=== PATIENT | female | born 1985 | race Caucasian/White ===

== ENCOUNTER 2016-08-09 19:02 | Emergency (ER) | payer MEDICAID ==
--- NOTE | 2016-08-09 20:25 | Emergency Department Record ---
History of Present Illness - General Chief complaint: Abscess Stated complaint: BOIL UNDER LT ARM Time Seen by Provider: 08/09/16 20:16 Source: Patient Mode of Arrival: Ambulatory Limitations: No limitations - History of Present Illness Initial comments: 31 yo presents with left axilla pain, redness and swelling. She has a history of abscesses in the past. This started one week ago. She saw her doctor 2 days ago and started clindamycin. She is not improved. She is having fevers. She has had fevers and chills. She has had multiple I and D's in the past. PCP is Dr Thomas of [place]. MD complaint: Abscess/boil - Related Data Home Medications Medication Instructions Recorded Confirmed Last Taken Albuterol Sulfate [Ventolin Hfa] 1 puff INH DAILY 08/09/16 08/09/16 08/09/16 Aripiprazole [Aripiprazole] 20 mg PO DAILY 08/09/16 08/09/16 08/09/16 Clindamycin HCl [Cleocin HCl] 300 mg PO TID 08/09/16 08/09/16 08/09/16 Fluticasone/Salmeterol 100/50 1 disk IH Q12H 08/09/16 08/09/16 08/09/16 [Advair 100/50] Loratadine [Loratadine] 10 mg PO DAILY 08/09/16 08/09/16 08/09/16 Mometasone/Formoterol [Dulera 200 1 inh INH DAILY 08/09/16 08/09/16 08/09/16 Mcg/5 Mcg Inhaler] Venlafaxine HCl [Venlafaxine HCl 225 mg PO DAILY 08/09/16 08/09/16 08/09/16 ER] Allergies Allergy/AdvReac Type Severity Reaction Status Date / Time Cephalosporins Allergy Unknown HIVES Unverified 08/09/16 20:11 erythromycin base [From ] Allergy Unknown HIVES Unverified 08/09/16 20:11 Sulfa (Sulfonamide Allergy Unknown VOMITING Unverified 08/09/16 20:11 Antibiotics) sulfisoxazole Allergy VOMITING Verified 08/09/16 20:11 [From Pediazole] Review of Systems Constitutional: Reports: Chills, Fever, Malaise Eyes: Denies: Eye discharge ENT: Denies: Congestion, Throat pain Respiratory: Denies: Cough, Dyspnea, Hemoptysis, Stridor, Wheezes Cardiovascular: Denies: Chest pain, Palpitations, Syncope Endocrine: Denies: Fatigue Gastrointestinal: Denies: Abdominal pain, Diarrhea, Nausea, Vomiting Genitourinary: Denies: Dysuria, Urgency Musculoskeletal: Denies: Arthralgia, Back pain, Joint swelling, Myalgia, Neck pain Skin: Reports: Change in color, Lesions. Denies: Bruising Neurological: Denies: Confusion, Headache Psychiatric: Denies: Anxiety Hematological/Lymphatic: Denies: Blood Clots, Easy bleeding, Easy bruising, Swollen glands Physical Exam - General General Appearance: Alert, Oriented x3, Cooperative, No acute distress, Anxious Limitations: No limitations - Head Head exam: Normal inspection - Eye Eye exam: Normal appearance. negative: Conjunctival injection, Periorbital swelling - ENT ENT exam: Normal exam Ear exam: Normal external inspection Nasal Exam: Normal inspection Mouth exam: Normal external inspection - Neck Neck exam: Normal inspection, Full ROM. negative: Tenderness - Respiratory Respiratory exam: Normal lung sounds bilaterally. negative: Respiratory distress - Cardiovascular Cardiovascular Exam: Tachycardia - Rectal Rectal exam: Deferred - exam: Deferred - Extremities Extremities exam: Full ROM, Tenderness. negative: Normal inspection Image of Full Body: 1 - tenderness erythema, fluctuance in the axilla with surrounding erythema to the elbow consistent with cellulitis, mulitple old axillary scars from prior infections - Back Back exam: Reports: Normal inspection - Neurological Neurological exam: Alert, Normal gait, Oriented X3. negative: Altered - Psychiatric Psychiatric exam: Anxious - Skin Type of lesion: Abscess Course - Reevaluation(s) Reevaluation #1: The patient was seen and examined She has an abscess in the left axilla with cellulitis beyond the line from 24 hours ago I recommended I and D and admission for IV antibiotics or transfer for inpatient treatment for this infection If she does not want inpatient at [facility] I offered assisting with transfer to another hospital of her choice. She declined. She told me she will not stay inpatient under any condition I told her I would absolutely treat her in the ED but she is taking significant risk by leaving the ED. I explained she would have to sign out AMA assuming the risk of worse infection or even sepsis with threat to life or limb She understands my concerns and accept the risks and will sign out AMA with the acceptance of the risk for a bad outcome. She is fully capable of making personal medical decisions and understanding the consequences. All conversations occurred prior to IV analgesia. She has very clear thoughts on her care and what she will consent to at this time. 08/09/16 20:27 08/09/16 20:41 Reevaluation #2: I further evaluated the patient with bedside US. The area is larger than realized on initial examination. The fluctuant area nears 8-10cm. I recommend transfer or to discuss with surgery. The patient prefers [facility]. 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 08/09/16 21:07 Reevaluation #3: I SW Dr Arriola I SW Dr Jensen of the ED as well for transfer and surgery consultation 08/09/16 21:14 The patient is will to be transferred understanding the significance of the infection. She will not go by EMS. She is stable to go by car. She was told to eat or drink. She had been told already to remain NPO. 08/09/16 21:21 Medical Decision Making - Lab Data Result diagrams: 08/09/16 20:38 08/09/16 20:38 Disposition Disposition: Transfer Clinical Impression: Axillary abscess Cellulitis Qualifiers: Site of cellulitis: unspecified site Qualified Code(s): L03.90 - Cellulitis, unspecified Disposition: Acute Care Hospital Transfer Transfer To: [facility] Reason For Transfer: Axillary abscess, cellulitis Accepting Physician: [facility] Time Discussed w/Accepting Physician: 21:17 Condition: (3) Guarded Instructions: Abscess Incision and Drainage (ED), Abscess (ED) Additional Instructions: Go directly to the [facility] ER DO NOT EAT OR DRINK ANYTHING PRIOR TO BEING SEEN THERE Forms: Patient Portal Access Time of Disposition: 21:17
[2016-08-09] MEDS ORDERED: 0.9 % SODIUM CHLORIDE 1,000 ML BAG IV ONE (20:26)
[2016-08-09] MEDS ORDERED: HYDROMORPHONE HCL 1 MG/ML CPJ IVP ONE (20:26)
[2016-08-09] MEDS ORDERED: CLINDAMYCIN 600MG/50ML PREMIX 600 MG/50 ML BAG IVPB ONE (20:26)
[2016-08-09] MEDS ORDERED: LORAZEPAM 2 MG/ML VIAL IV ONE ×2 (20:41→20:45)
[2016-08-09 20:51] LABS: HEMATOCRIT 39.1 % (35.0-47.0); HEMOGLOBIN 12.8 gm/dl (11.6-16.0); MEAN CELL VOLUME 88.7 fl (81-97); MEAN CORPUSCULAR HGB CONC 32.7 g/dl (32-36); MEAN PLATELET VOLUME 10.4 fl (7.4-10.4); PLATELET COUNT 259 K/uL (130-400); RED BLOOD COUNT 4.41 M/uL (3.80-5.40); RED CELL DISTRIBUTION WIDTH 14.7 % (11.5-14.5); WHITE BLOOD COUNT W/O DIFF 13.2 K/uL (4.2-12.2)
[2016-08-09 21:01] LABS: ANION GAP 9.2 (7-16); BLOOD UREA NITROGEN 3 mg/dL (7-17); CARBON DIOXIDE 24.8 mmol/L (22-30); CREATININE 0.6 mg/dL (0.52-1.04); EST GLOMERULAR FILTRATION RATE > 60 ml/min; GLUCOSE,RANDOM 121 mg/dL (70-110)
== END 2016-08-09 21:40 | disposition short-term general hospital (02) ==
LOC: ER 19:02
DX: L02.412 Cutaneous abscess of left axilla (principal)
CPT/HCPCS: 99285 ×2; 96376; 96365; 96375; 80048; 85027; J2060; J1170; J7030

== ENCOUNTER 2016-11-16 09:54 | Emergency (ER) | payer MEDICAID ==
--- NOTE | 2016-11-16 10:21 | Emergency Department Record ---
History of Present Illness - General Chief Complaint: Suicidal thoughts Stated Complaint: SUICIDAL Time Seen by Provider: 11/16/16 10:08 Source: Patient Mode of Arrival: EMS Limitations: No limitations Travel/Exposure to [place] Within 21 Days of Symptoms: No - History of Present Illness Initial Comments: The patient is here due to feeling suicidal today. She states she got in a fight with her mother due to feeling suicidal and then her mother called the police. She was then sent to the ER for evaluation. The patient states she has a hx of drug abuse and is thinking of using a big dose of heroin to kill herself. She is not willing to share anything else with me at this time. She also denies any overdose or ingestion presently. MD Complaint: Suicidal ideation Onset/Timin -: Hour(s) Associated Psychiatric Symptoms: Depression, Suicidal ideation If Self Harm: Admits thoughts of self harm, Has plan Details of Plan: pt states "take a big ass shot of fucking herione and go peacefully" - [place] Coma Scale Eye Response: (4) Open spontaneously Motor Response: (6) Obeys commands Verbal Response: (5) Oriented [place] Total: 15 - Related Data Previous Rx's Medication Instructions Recorded Doxycycline Monohydrate [Mondoxyne 100 mg PO BID #14 capsule 11/16/16 ] Allergies Allergy/AdvReac Type Severity Reaction Status Date / Time Cephalosporins Allergy Unknown HIVES Verified 11/16/16 10:13 erythromycin base [From ] Allergy Unknown HIVES Verified 11/16/16 10:13 Sulfa (Sulfonamide Allergy Unknown VOMITING Verified 11/16/16 10:13 Antibiotics) sulfisoxazole Allergy VOMITING Verified 11/16/16 10:13 [From Pediazole] Review of Systems Constitutional: Denies: Chills, Fever Eyes: Denies: Eye discharge ENT: Denies: Congestion, Other Respiratory: Denies: Cough, Dyspnea Past Medical History - SOCIAL HISTORY Smoking Status: Current every day smoker Alcohol Use: Occasional Drug Use: Heavy Drug Use Detail:: Methamphetamine, Other - RESPIRATORY Hx Respiratory Disorders: Yes Hx Asthma: Yes Hx Bronchitis: Yes - CARDIOVASCULAR Hx Cardio Disorders: No - NEURO Hx Neuro Disorders: No - GI Hx GI Disorders: Yes Hx Hepatitis/Jaundice: Yes - Hx Genitourinary Disorders: No - ENDOCRINE Hx Endocrine Disorders: No - MUSCULOSKELETAL Hx Musculoskeletal Disorders: Yes Comment:: cage and screws - PSYCH Hx Anxiety: Yes Hx Behavior Problems: Yes (boarderline personality) Hx Depression: Yes - HEMATOLOGY/ONCOLOGY Hx Hematology/Oncology Disorders: No Family Medical History Any Significant Family History?: No Family Hx Comment (NOT TO BE USED IN PLACE OF ITEMS BELOW): unable to provide at this time Physical Exam - General General Appearance: Alert, Oriented x3, Cooperative, No acute distress - Head Head exam: Atraumatic, Normocephalic, Normal inspection - Eye Eye exam: Normal appearance, PERRL - Neck Neck exam: Normal inspection, Full ROM. negative: Tenderness - Respiratory Respiratory exam: Normal lung sounds bilaterally. negative: Respiratory distress - Cardiovascular Cardiovascular Exam: Regular rate, Normal rhythm, Normal heart sounds - GI/Abdominal GI/Abdominal exam: Soft, Normal bowel sounds. negative: Tenderness - Extremities Extremities exam: Normal inspection, Full ROM, Normal capillary refill. negative: Tenderness - Neurological Neurological exam: Alert, Normal gait. negative: Abnormal gait, Motor sensory deficit Course Vital Signs 11/16/16 10:06 Temperature 98.0 F Pulse Rate 100 H Respiratory 18 Rate Blood Pressure 141/82 Pulse Ox 98 - Reevaluation(s) Reevaluation #1: The patient is doing very well at this time. She denies any pain or discomfort and is resting comfortably. I did discuss the case with Ms. De Los Santos at [facility] and she does accept the patient in transfer. She would like to look over her paperwork and will call us back. 11/16/16 11:22 Reevaluation #2: The patient is doing well. She is calm and cooperative and denies any problems. She is still coughing which has been present for over 2 weeks so we will start her on Doxycycline. The patient's lab evaluation does demonstrate elevated LFT' s but that is chronic for her due to Hep C she states. She also has had elevated LFT's in the past so it appears it is a chronic issue with her. She appears very stable for discharge to [facility]. 11/16/16 11:46 Reevaluation #3: The patient is doing very well at this time. She was acting out for a prolonged time and was belligerent, shouting profanities and was stating she was going to fight us. We did call the police and now the patient is calm. We did NOT have to physically or chemically restrain the patient. She states she is angry due to not being able to smoke and due to the fact she was lied to by the police. 11/16/16 13:44 Reevaluation #4: I did just speak with Ms. De Los Santos at [facility] and the patient is cleared for transfer. 11/16/16 14:08 Medical Decision Making - Data Complexity MDM Data: Labs Ordered and/or Reviewed, X-Ray Ordered and/or Reviewed - Lab Data Result diagrams: 11/16/16 10:15 11/16/16 10:15 - Radiology Data Radiology results: Report reviewed (CXR: Neg.) Disposition Disposition: Transfer Clinical Impression: Suicidal ideation Disposition: Acute Care Hospital Transfer Transfer To: [facility] Reason For Transfer: Psych. Accepting Physician: Dr. Abbott Time Discussed w/Accepting Physician: 14:06 Condition: (2) Stable Instructions: Suicide Prevention for Adults (ED) Additional Instructions: Please proceed to [facility] for further evaluation. Take the Doxycycline as directed. Prescriptions: Doxycycline Monohydrate [Mondoxyne Nl] 100 mg PO BID #14 capsule Forms: Patient Portal Access Time of Disposition: 14:06 Quality - Quality Measures Quality Measures: N/A - Blood Pressure Screening View Details: Yes Does Patient Have Any of the Following: No Blood Pressure Classification: Pre-Hypertensive BP Reading Systolic Measurement: 141 Diastolic Measurement: 82 Screening for High Blood Pressure: < Pre-Hypertensive BP, F/U Documented > [ G8950] Pre-Hypertensive Follow-up Interventions: Referral to alternative/primary care provider.
[2016-11-16 10:28] LABS: BASO % 0.3 % (0-6); EOS % 3.8 % (0-6); GRAN % 69.1 % (47-80); HEMATOCRIT 38.2 % (35.0-47.0); HEMOGLOBIN 12.9 gm/dl (11.6-16.0); LYMPH % 18.4 % (16-45); MEAN CELL VOLUME 87.4 fl (81-97); MEAN CORPUSCULAR HEMOGLOBIN 29.5 pg (27-33); MEAN CORPUSCULAR HGB CONC 33.8 g/dl (32-36); MEAN PLATELET VOLUME 10.3 fl (7.4-10.4); MONO % 8.4 % (0-9); PLATELET COUNT 238 K/uL (130-400); RED BLOOD COUNT 4.37 M/uL (3.80-5.40); RED CELL DISTRIBUTION WIDTH 15.9 % (11.5-14.5); WHITE BLOOD COUNT W/O DIFF 7.7 K/uL (4.2-12.2)
[2016-11-16] MEDS: IPRATROPIUM/ALBUTEROL (0.5MG/3MG) NEB INH ONE (10:33)
[2016-11-16 10:42] LABS: ALB/GLOB RATIO 1.3 (1.1-1.8); ALBUMIN 3.9 g/dL (4.0-5.0); ALKALINE PHOSPHATASE 63 U/L (35-104); ALT/SGPT 155 U/L (<33); AST/SGOT 96 U/L (10.0-35.0); BLOOD UREA NITROGEN 7.8 mg/dL (12.6-42.6); CREATININE 0.5 mg/dL (0.5-0.9); EST GLOMERULAR FILTRATION RATE > 60 mL/min; GLUCOSE,RANDOM 116 mg/dL (74-109); TOTAL PROTEIN 6.8 g/dL (6.6-8.7)
[2016-11-16 10:45] LABS: SALICYLATE < 0.3 mg/dL (2.8-20)
[2016-11-16 11:08] LABS: URINE APPEARANCE CLEAR; URINE BILIRUBIN NEGATIVE (NEGATIVE); URINE BLOOD NEGATIVE (NEGATIVE); URINE COLOR YELLOW; URINE GLUCOSE (UA) NEGATIVE (NEGATIVE); URINE KETONE TRACE (NEGATIVE); URINE LEUKOCYTE ESTERASE TRACE (NEGATIVE); URINE NITRITE NEGATIVE (NEGATIVE); URINE PROTEIN NEGATIVE (NEGATIVE)
[2016-11-16 11:12] LABS: AMPHETAMINE SCREEN URINE NOT DETECTED; BARBITURATE SCREEN URINE NOT DETECTED; BENZODIAZEPINE SCREEN URINE NOT DETECTED; COCAINE SCREEN URINE NOT DETECTED; METHADONE SCREEN URINE NOT DETECTED; METHAMPHETAMINE SCREEN DETECTED; OPIATE SCREEN URINE NOT DETECTED; OXYCODONE SCREEN URINE NOT DETECTED; PHENCYCLIDINE SCREEN URINE NOT DETECTED; PROPOXYPHENE SCREEN URINE NOT DETECTED; THC SCREEN URINE NOT DETECTED; TRICYCLIC ANTIDEPRESSANT SCRN NOT DETECTED
[2016-11-16] MEDS: LORAZEPAM 0.5 MG TABLET PO ONE (11:12)
[2016-11-16] MEDS: POTASSIUM CHLORIDE 20 MEQ TABLET PO ONE (11:13)
[2016-11-16 11:17] LABS: HCG,QUALITATIVE URINE NEGATIVE (NEGATIVE); URINE BACTERIA 1+; URINE RBC NONE SEEN (NONE SEEN)
[2016-11-16] MEDS: DOXYCYCLINE HYCLATE 100 MG CAPSULE PO ONE (12:07)
[2016-11-16] MEDS: NICOTINE 21 MG/24 HOUR PATCH TD SCH (13:20)
--- NOTE | 2016-11-17 10:32 | RADIOLOGY REPORT ---
EXAM: CHEST, TWO VIEWS HISTORY: PATIENT HAS COUGH TIMES ONE AND A HALF WEEKS. TECHNIQUE: Two views of the chest are provided along with the comparison x-ray dated 07/05/11. FINDINGS: The cardiomediastinal silhouette is within normal limits for size and contour. The susan appear unremarkable. There is no radiographic evidence of a focal infiltrate or pleural effusion. IMPRESSION: NO RADIOGRAPHIC EVIDENCE OF AN ACUTE INTRATHORACIC PROCESS. JOB NUMBER: [id number] MTDD
== END 2016-11-16 14:34 | disposition short-term general hospital (02) ==
LOC: ER 09:54
DX: R45.851 Suicidal ideations (principal); R05 Cough; B19.20 Unspecified viral hepatitis C without hepatic coma; Z79.899 Other long term (current) drug therapy
CPT/HCPCS: 99285 ×2; 85025; 80053; 81001; 81025; 80305; 71020; 94640; G0480 ×3; 80320; 80329

== ENCOUNTER 2018-11-12 17:34 | Emergency (ER) | payer MEDICAID ==
[2018-11-12] MEDS ORDERED: KETOROLAC 30 MG/ML VIAL IM ONE (17:41)
--- NOTE | 2018-11-12 17:45 | Emergency Department Record ---
History of Present Illness - General Chief Complaint: Knee injury Stated Complaint: KNEE INJURY Time Seen by Provider: 11/12/18 17:40 Source: Patient Mode of Arrival: Ambulatory Limitations: No limitations - History of Present Illness Initial Comments: The patient is here due to twisting her R knee 8 hours ago and having continued pain. She was walking and tried to duck down and her R knee buckled. Since she has had medial R knee pain. The patient has been able to walk on it with pain. She states any ROM does significantly increase the pain. She denies any other injuries. MD Complaint: Knee injury Onset/Timin -: Hour(s) Place: Home Severity: Moderate Severity scale (1-10): 7 Improves With: Nothing Worsens With: Movement, Weight bearing Context: Walking Associated Symptoms: Snap/pop sensation - Related Data Home Medications Medication Instructions Recorded Confirmed Last Taken Metformin HCl 1 tab PO BID 11/12/18 11/12/18 Unknown Quetiapine Fumarate [Seroquel] 1 tab PO DAILY 11/12/18 11/12/18 Unknown Previous Rx's Medication Instructions Recorded Naproxen [Naprosyn] 500 mg PO BID #14 tablet. 11/12/18 Allergies Allergy/AdvReac Type Severity Reaction Status Date / Time Cephalosporins Allergy Unknown HIVES Verified 11/16/16 10:13 erythromycin base [From ] Allergy Unknown HIVES Verified 11/16/16 10:13 Sulfa (Sulfonamide Allergy Unknown VOMITING Verified 11/16/16 10:13 Antibiotics) sulfisoxazole Allergy VOMITING Verified 11/16/16 10:13 [From Pediazole] Travel Screening - Travel/Exposure Within Last 30 Days Have you traveled within the last 30 days?: No - Travel/Exposure Within Last Year Have you traveled outside the [place] in the last year?: No - Additonal Travel Details Have you been exposed to anyone with a communicable illness?: No - Travel Symptoms Symptom Screening: None Review of Systems Constitutional: Denies: Chills, Fever Eyes: Denies: Eye discharge ENT: Denies: Congestion Respiratory: Denies: Cough, Dyspnea Past Medical History - SOCIAL HISTORY Smoking Status: Current every day smoker Alcohol Use: None Drug Use: Rare Drug Use Detail:: Marijuana - RESPIRATORY Hx Respiratory Disorders: Yes Hx Asthma: Yes Hx Bronchitis: Yes - CARDIOVASCULAR Hx Cardio Disorders: No - NEURO Hx Neuro Disorders: No - GI Hx GI Disorders: Yes Hx Hepatitis/Jaundice: Yes - Hx Genitourinary Disorders: No - ENDOCRINE Hx Endocrine Disorders: No - MUSCULOSKELETAL Hx Musculoskeletal Disorders: Yes Comment:: cage and screws - PSYCH Hx Anxiety: Yes Hx Behavior Problems: Yes (boarderline personality) Hx Depression: Yes - HEMATOLOGY/ONCOLOGY Hx Hematology/Oncology Disorders: No Family Medical History Any Significant Family History?: No Family Hx Comment (NOT TO BE USED IN PLACE OF ITEMS BELOW): unable to provide at this time Physical Exam - General General Appearance: Alert, Oriented x3, Cooperative, No acute distress - Head Head exam: Atraumatic - Eye Eye exam: Normal appearance - Extremities Extremities exam: Normal inspection (There is no joint swelling, effusions, or bruising appreciated.), Normal capillary refill, Tenderness (There is R medial joint line tenderness over the knee.), Other (The patient has normal DP pulses bilaterally.). negative: Full ROM (The patient has decreased ROM due to pain and possible R medial collateral ligamentous laxity.), Joint swelling - Neurological Neurological exam: Alert. negative: Motor sensory deficit Course - Reevaluation(s) Reevaluation #1: I did discuss with the patient that I feel the xrays are neg but feel she could have a strain of the R medial collateral ligament. She is to wear the immobilizer at all times and use the crutches for walking. She is to see her PCP next week for recheck and for possible Orthopedic referral. 11/12/18 18:07 Medical Decision Making - Data Complexity MDM Data: X-Ray Ordered and/or Reviewed - Radiology Data Radiology results: Report reviewed (R knee: Neg for any acute changes.) Disposition Disposition: Discharge Clinical Impression: Right knee sprain Qualifiers: Encounter type: initial encounter Involved ligament of knee: unspecified ligament Qualified Code(s): S83.91XA - Sprain of unspecified site of right knee, initial encounter Disposition: Home, Self-Care Condition: (2) Stable Instructions: Knee Sprain (ED) Additional Instructions: Please wear the immobilizer and use the crutches for walking for 3-5 days. Use Naprosyn for pain. Ice and elevate the R knee for the next 3 days and do not walk on the R leg. Please see your family doctor early next week for recheck. Prescriptions: Naproxen [Naprosyn] 500 mg PO BID #14 tablet.dr Forms: Patient Portal Access Time of Disposition: 17:55 Quality - Quality Measures Quality Measures: N/A - Blood Pressure Screening View Details: Yes Does Patient Have Any of the Following: No Blood Pressure Classification: Pre-Hypertensive BP Reading Systolic Measurement: 122 Diastolic Measurement: 62 Screening for High Blood Pressure: < Pre-Hypertensive BP, F/U Documented > [G8950] Pre-Hypertensive Follow-up Interventions: Referral to alternative/primary care provider.
--- NOTE | 2018-11-14 20:18 | RADIOLOGY REPORT ---
EXAM: KNEE, RIGHT 3 VIEWS HISTORY: RIGHT KNEE SPRAIN TODAY. TECHNIQUE: Three views right knee. COMPARISON: None. ENCOUNTER: Initial. FINDINGS: The right knee appears intact with no definite fracture or dislocation seen. No definite joint effusion identified. IMPRESSION: THE RIGHT KNEE APPEARS NEGATIVE. JOB NUMBER: [id number] MTDD
== END 2018-11-12 18:28 | disposition home or self-care (01) ==
LOC: ER 17:34
DX: S83.91XA Sprain of unspecified site of right knee, initial encounter (principal); X50.1XXA Overexertion from prolonged static or awkward postures, initial encounter; Y92.009 Unspecified place in unspecified non-institutional (private) residence as the place of occurrence of the external cause; F17.210 Nicotine dependence, cigarettes, uncomplicated
CPT/HCPCS: 99284 ×2; 96372; 73562; J1885

== ENCOUNTER 2018-11-30 12:12 | Emergency (ER) | payer MEDICAID ==
--- NOTE | 2018-11-30 13:28 | Emergency Department Record ---
History of Present Illness - General Chief complaint: Abscess Stated complaint: LUMP ON HEAD Time Seen by Provider: 11/30/18 13:25 Source: Patient Mode of Arrival: Ambulatory Limitations: No limitations - History of Present Illness Initial comments: Pt with abscess to right scalp. Hair shaved at site. Tender. No fever. Pt is DM on Metformin. No prior treatments. Onset/Timin -: Week(s) Location: Head Severity: Moderate Severity scale (1-10): 9 Quality: Other Consistency: Constant Improves with: None Worsens with: None Context: Other - Related Data Previous Rx's Medication Instructions Recorded Clindamycin HCl 300 mg PO QID 7 Days #28 capsule 11/30/18 Allergies Allergy/AdvReac Type Severity Reaction Status Date / Time Cephalosporins Allergy Unknown HIVES Verified 11/30/18 12:21 erythromycin base [From ] Allergy Unknown HIVES Verified 11/30/18 12:21 Sulfa (Sulfonamide Allergy Unknown VOMITING Verified 11/30/18 12:21 Antibiotics) sulfisoxazole Allergy VOMITING Verified 11/30/18 12:21 [From Pediazole] Travel Screening - Travel/Exposure Within Last 30 Days Have you traveled within the last 30 days?: No - Travel/Exposure Within Last Year Have you traveled outside the [place] in the last year?: No - Additonal Travel Details Have you been exposed to anyone with a communicable illness?: No Review of Systems Constitutional: Denies: Chills, Fever Eyes: Denies: Eye discharge, Photophobia ENT: Denies: Congestion Respiratory: Denies: Cough Cardiovascular: Denies: Palpitations Endocrine: Denies: Fatigue Gastrointestinal: Denies: Abdominal pain, Nausea, Vomiting Musculoskeletal: Denies: Arthralgia, Back pain Skin: Reports: As per HPI Psychiatric: Denies: Anxiety Hematological/Lymphatic: Denies: Anemia Past Medical History - SOCIAL HISTORY Smoking Status: Current every day smoker Alcohol Use: Rare Drug Use: Occasional Drug Use Detail:: Marijuana - RESPIRATORY Hx Respiratory Disorders: Yes Hx Asthma: Yes Hx Bronchitis: Yes - CARDIOVASCULAR Hx Cardio Disorders: No - NEURO Hx Neuro Disorders: No - GI Hx GI Disorders: Yes Hx Hepatitis/Jaundice: Yes - Hx Genitourinary Disorders: No - ENDOCRINE Hx Endocrine Disorders: No - MUSCULOSKELETAL Hx Musculoskeletal Disorders: Yes Comment:: cage and screws - PSYCH Hx Psych Problems: Yes Hx Anxiety: Yes Hx Behavior Problems: Yes (boarderline personality) Hx Depression: Yes - HEMATOLOGY/ONCOLOGY Hx Hematology/Oncology Disorders: No Family Medical History Any Significant Family History?: No Family Hx Comment (NOT TO BE USED IN PLACE OF ITEMS BELOW): unable to provide at this time Physical Exam - General General Appearance: Alert, Oriented x3, Cooperative, No acute distress - Head Head exam: Atraumatic Head exam detail: Other (right posterior parietal area with 1.5 cm diameter area of induration without fluctuance or drainage. ) - Eye Eye exam: Normal appearance, PERRL, EOMI - ENT ENT exam: Mucous membranes moist Ear exam: Normal external inspection Nasal Exam: Normal inspection - Neck Neck exam: Normal inspection, Full ROM. negative: Lymphadenopathy, Tenderness - Respiratory Respiratory exam: Normal lung sounds bilaterally. negative: Wheezes - Cardiovascular Cardiovascular Exam: Regular rate, Normal rhythm - GI/Abdominal GI/Abdominal exam: Soft. negative: Tenderness - Extremities Extremities exam: Normal inspection - Back Back exam: Reports: Normal inspection - Neurological Neurological exam: Alert, Normal gait, Oriented X3 - Psychiatric Psychiatric exam: Normal affect, Normal mood - Skin Skin exam: Normal color (see scalp above) Course Vital Signs 11/30/18 12:23 Temperature 98.8 F Pulse Rate 100 H Respiratory 20 Rate Blood Pressure 138/81 Pulse Ox 97 - Reevaluation(s) Reevaluation #1: 11/30/18 13:31 early abscess without need for I&D at this time. Home with AB and compress. Pt understands. Disposition Disposition: Discharge Clinical Impression: Abscess, scalp Disposition: Home, Self-Care Condition: (2) Stable Instructions: Abscess (ED) Additional Instructions: No Incision needed today. Warm compress 4-6 times a day Take antibiotic as instructed. Monitor sugars See your doctor in 48 hours Return to the ED as needed. Prescriptions: Clindamycin HCl 300 mg PO QID 7 Days #28 capsule Forms: Patient Portal Access Time of Disposition: 13:28 Quality - Quality Measures Quality Measures: N/A - Blood Pressure Screening Does Patient Have Any of the Following: No Blood Pressure Classification: Pre-Hypertensive BP Reading Systolic Measurement: 138 Diastolic Measurement: 81 Screening for High Blood Pressure: < Pre-Hypertensive BP, F/U Documented > [G8950] Pre-Hypertensive Follow-up Interventions: Follow-up with rescreen every year.
== END 2018-11-30 13:39 | disposition home or self-care (01) ==
LOC: ER 12:12
DX: L02.811 Cutaneous abscess of head [any part, except face] (principal); E11.9 Type 2 diabetes mellitus without complications; Z79.84 Long term (current) use of oral hypoglycemic drugs; F17.210 Nicotine dependence, cigarettes, uncomplicated
CPT/HCPCS: 99283